=== PATIENT | female | born 2000 | race African-American/Black ===

== ENCOUNTER 2019-06-17 02:59 | Emergency (ER) | payer MEDICAID ==
[~2019-06-17] VITALS: Ht 167.6 cm; Wt 59.0 kg
[2019-06-17] MEDS ORDERED: HYDROCODONE/ACETAMINOPHEN 5/325MG TABLET PO ONE (05:45)
[2019-06-17 05:51] VITALS: BP 147/79
== END 2019-06-17 06:52 | disposition home or self-care (01) ==
LOC: EDBD 02:59 → ER 02:59
DX: S83.91XA Sprain of unspecified site of right knee, initial encounter (principal); X58.XXXA Exposure to other specified factors, initial encounter; Y93.89 Activity, other specified; Y92.89 Other specified places as the place of occurrence of the external cause; Y99.8 Other external cause status
CPT/HCPCS: 73562; 99283; L1830